=== PATIENT | female | born 1965 | race American Indian/Alaskan Native ===

== ENCOUNTER 2017-07-23 15:45 | Emergency (ER) | payer BC ==
[2017-07-23 15:46] VITALS: BMI 37.5
[2017-07-23 16:05] VITALS: TEMP 99.4
--- NOTE | 2017-07-23 16:45 | ED PDOC ---
Arrival/HPI - General Chief Complaint: Back Pain Time Seen by Provider: 07/23/17 16:38 - History of Present Illness Narrative History of Present Illness (Text): 07/23/17 16:41 Patient presents with lower thoracic R. sided back pain. Pt denies any trauma or injury. Pt states pain feels like a muscle spasm, worst with movement and palpation. No ripping/tearing sensation, pain is not diffuse and not traveling or changing location. Relieved with positioning. Pt states pain is not worst with inspiration, and is non-pleurtic. Pt states she had similar back pain in the past. No lower extremity pain/weakness/paresthesias. Pt denies urinary incontinence or retention. No bowel incontinence, constipation, or diarrhea. No hx of IVDA, no f/c, no neck pain. No other complaints. Past Medical History - Provider Review Nursing Documentation Reviewed: Yes - Infectious Disease Hx of Infectious Diseases: None - Tetanus Immunization Tetanus Immunization: Unknown - Cardiac Hx Hypertension: Yes - Pulmonary Hx Respiratory Disorders: No - Neurological Hx Neurological Disorder: No - HEENT Hx HEENT Disorder: No - Renal Hx Renal Disorder: No - Endocrine/Metabolic Other/Comment: PRE DIABETIC A1C - Hematological/Oncological Hx AIDS: Yes - Integumentary Hx Dermatological Disorder: No - Musculoskeletal/Rheumatological Other/Comment: WRIST R PAIN - Gastrointestinal Hx Gastrointestinal Ulcer: Yes - Genitourinary/Gynecological Hx Genitourinary Disorders: No - Psychiatric Hx Psychophysiologic Disorder: No Hx Depression: No Hx Emotional Abuse: No Hx Physical Abuse: No Hx Substance Use: No - Surgical History Other/Comment: UTERINE - Anesthesia Hx Anesthesia: Yes - Suicidal Assessment Feels Threatened In Home Enviroment: No Family/Social History Family/Social History: Unknown Family HX Smoking Status: Never Smoked Hx Alcohol Use: No Hx Substance Use: No Hx Substance Use Treatment: No Allergies/Home Meds Allergies/Adverse Reactions: Allergies No Known Allergies Allergy (Verified 07/23/17 15:58) Physical Exam - Physical Exam Narrative Physical Exam (Text): 07/23/17 16:46 - Review of Systems Constitutional: Normal. absent: Fatigue, Weight Change, Fevers Eyes: Normal ENT: denies sore throat, denies tristhmus Respiratory: Normal. absent: SOB, Cough, Sputum Cardiovascular: absent: Chest Pain, Palpitations, Syncope Gastrointestinal: Normal. absent: Abdominal Pain, Diarrhea, Nausea, Vomiting Genitourinary: Normal. absent: Dysuria, Frequency, Hematuria Musculoskeletal: back pain. absent: Arthralgias, Neck Pain Skin: no rashes, no erythema Neurological: absent: Focal Weakness Endocrine: Normal Hemo/Lymphatic: Normal Psychiatric: No suicidal or homicidal ideations Physical exam Patient appears age appropriate in no distress, speaking full sentences without difficulty Increased hypertonicity appreciated in the lower thoracic region on the R, pain with palpation along the post/lateral lower ribs, pain quality reproduced with palpation. No pleuricy. No midline tenderness. FROM of pt's cervical, thoracic, lumbar, and sacral regions appreciated, active/passive without any difficulty. Lower extremities with full neurological and vascular intact. Steady gait. - Systems Exam Head: Present: Atraumatic, Normocephalic Pupils: Present: PERRL Extroacular Muscles: Present: EOMI Conjunctiva: Present: Normal Mouth: Present: Moist Mucous Membranes Neck: Present: Normal Range of Motion. No: MIDLINE TENDERNESS, Paraspinal Tenderness Respiratory/Chest: Present: Clear to Auscultation, Good Air Exchange. No: Respiratory Distress, Accessory Muscle Use, Tachypneic Cardiovascular: Present: Regular Rate and Rhythm, Normal S1, S2, Peripheal Pulses Present. No: Murmurs Abdomen: Present: Normal Bowel Sounds. No: Tenderness, Distention, Peritoneal Signs, Rebound, Guarding Back: No: Midline Tenderness Upper Extremity: Present: Normal Inspection. No: Cyanosis, Edema Lower Extremity: Present: Normal Inspection. No: Edema Neurological: Present: GCS=15, Speech Normal, cranial nerves II through XII fully intact with no cerebellar abnormality, neurosensory fully intact. No focal neurological deficits. Skin: Present: Warm, Dry, Normal Color. No: Rashes Lymphatic: Present: OX3, NI, NC Psychiatric: Present: Alert, Oriented x 3, Normal Insight, Normal Concentration Vital Signs Reviewed: Yes Vital Signs Temp Pulse Resp BP Pulse Ox 07/23/17 15:59 99.4 F 68 16 184/114 H 98 Temperature: Afebrile Blood Pressure: Hypertensive Pulse: Regular Respiratory Rate: Normal Appearance: Positive for: Well-Appearing Pain Distress: None Mental Status: Positive for: Alert and Oriented X 3 Medical Decision Making ED Course and Treatment: pt received toradol, reported symptomatic relief. Based on hx and physical, no suspicion for renal involvement, cord impingement, PE, dissection, or epidural/ spinal abscess stable for dc home. instructed not to drive/operate machinery/drink/do drugs with medication pt's BP elevated. pt is asymptomatic. states she has a hx of HTN and admits to med non-compliance. states she has a PMD with whom she will f/u for further w/u and management. Pt verbalized understands to return to the ER right away for new or worsening symptoms or for inability to f/u with PMD or specialist as instructed. Patient verbalized full agreement with and understanding of discharge instructions. States that she agrees with the plan and disposition. Verbalized and repeated discharge instructions and plan. I have given the patient opportunity to ask any additional questions. - Medication Orders Current Medication Orders: Ketorolac Tromethamine (Toradol) 30 mg IM STAT STA Stop: 07/23/17 16:40 Disposition/Present on Arrival - Present on Arrival Any Indicators Present on Arrival: No History of DVT/PE: No History of Uncontrolled Diabetes: No Urinary Catheter: No History of Decub. Ulcer: No History Surgical Site Infection Following: None - Disposition Have Diagnosis and Disposition been Completed?: Yes Diagnosis: Back pain Disposition: HOME/ ROUTINE Disposition Time: 16:53 Patient Plan: Discharge Condition: GOOD Discharge Instructions (ExitCare): Back Pain (ED) Additional Instructions: PLEASE RETURN TO THE EMERGENCY DEPARTMENT FOR NEW OR WORSENING SYMPTOMS. RETURN RIGHT AWAY IF YOU CANNOT FOLLOW UP WITH YOUR PRIMARY CARE DOCTOR, CLINIC, OR SPECIALIST IN 1-2 DAYS. Prescriptions: Acetaminophen [Tylenol Extra Strength] 1,000 mg PO Q12 PRN #16 tablet PRN Reason: Pain, Moderate (4-7) Lidocaine 5% [Lidoderm] 1 ea TD DAILY #3 patch Referrals: Jayson De MD [Staff Provider] - Follow up with primary
[2017-07-23 17:29] VITALS: BP 171/90; PULSE 71; RESP 18; O2SAT 99
== END 2017-07-23 17:29 | disposition home or self-care (01) ==
LOC: ED 15:45
DX: M54.9 Dorsalgia, unspecified (principal); I10 Essential (primary) hypertension
CPT/HCPCS: 96372; 99282; J1885

== ENCOUNTER 2017-08-09 14:46 | Observation (INO) | payer BC ==
[2017-08-09 14:55] VITALS: BMI 41.3
[2017-08-09 15:40] LABS: BASO % 0.5 % (0.0-3.0); EOS % 2.2 % (1.5-5.0); GRAN # 3.17 (1.4-6.5); GRAN % 40.3 % (50.0-68.0); HEMATOCRIT 39.4 % (36.0-48.0); LYMPH % 50.4 % (22.0-35.0); MEAN CELL VOLUME 85.8 fl (80.0-105.0); MEAN CORPUSCULAR HGB CONC 33.8 g/dl (31.0-37.0); MEAN PLATELET VOLUME 9.3 fl (7.0-11.0); MONO % 6.6 % (1.0-6.0); RED CELL DISTRIBUTION WIDTH 13.9 % (11.5-14.5); URINE BILIRUBIN NEGATIVE (NEGATIVE); URINE BLOOD NEGATIVE (NEGATIVE); URINE GLUCOSE (UA) NEGATIVE (NEGATIVE); URINE KETONE NEGATIVE (NEGATIVE); URINE LEUKOCYTE ESTERASE NEGATIVE Leu/uL (NEGATIVE); URINE PROTEIN NEGATIVE mg/dL (<30 mg/dL); URINE UROBILINOGEN 0.2 E.U./dL (<1 E.U./dL); WHITE BLOOD COUNT 7.9 10^3/ul (4.5-11.0)
[2017-08-09 15:41] LABS: BASO # 0.04 K/mm3 (0.0-2.0); EOS # 0.2 (0.0-0.7); MONO # 0.5 (0.1-0.6); URINE APPEARANCE CLEAR (CLEAR); URINE COLOR STRAW (YELLOW)
[2017-08-09 15:42] LABS: ALB/GLOB RATIO 1.1 (1.1-1.8); ALKALINE PHOSPHATASE 88 U/L (38-126); ALT/SGPT 34 U/L (7-56); AST/SGOT 36 U/L (14-36); BILIRUBIN,TOTAL 0.6 mg/dL (0.2-1.3); BLOOD UREA NITROGEN 14 mg/dL (7-21); CALCIUM 9.5 mg/dL (8.4-10.5); CARBON DIOXIDE 28 mmol/L (21-33); CHLORIDE 100 mmol/L (98-107); GFR AFRICAN-AMERICAN > 60; GLUCOSE,RANDOM 89 mg/dL (70-110); MAGNESIUM 1.9 mg/dL (1.7-2.2); POTASSIUM 3.4 mmol/L (3.6-5.0); SODIUM 141 mmol/L (132-148); TOTAL PROTEIN 8.3 g/dL (5.8-8.3)
[2017-08-09 15:50] VITALS: O2SAT 99
[2017-08-09 15:50] LABS: INR 1.09 (0.93-1.08); PARTIAL THROMBOPLASTIN TIME 26.5 Seconds (25.1-36.5)
[2017-08-09 15:54] LABS: TROPONIN I < 0.01 ng/mL
--- NOTE | 2017-08-09 16:06 | RAD ---
HISTORY: chest pain COMPARISON: No prior. TECHNIQUE: Chest PA and lateral FINDINGS: LUNGS: No active pulmonary disease. PLEURA: No significant pleural effusion identified. No pneumothorax apparent. CARDIOVASCULAR: Normal. OSSEOUS STRUCTURES: No significant abnormalities. VISUALIZED UPPER ABDOMEN: Normal. OTHER FINDINGS: None. IMPRESSION: No active disease.
--- NOTE | 2017-08-09 16:44 | ED PDOC ---
Arrival/HPI - General Chief Complaint: Chest Pain Time Seen by Provider: 08/09/17 15:00 Historian: Patient - History of Present Illness Narrative History of Present Illness (Text): 08/09/17 16:44 51yo female with PMhx of hypertension present with complaint of hypertension, chest pain and SOB. Notes that nonexertional dyspnea started yesterday. chesty pain started today and her BP was 167/115 at work today. 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 She denies headache, visual change, nausea/vomiting, orthopena, LE edema, calf pain, abdominal pain, any other complaint. Past Medical History - Provider Review Nursing Documentation Reviewed: Yes - Infectious Disease Hx of Infectious Diseases: None - Tetanus Immunization Tetanus Immunization: Unknown - Cardiac Hx Hypertension: Yes - Pulmonary Hx Respiratory Disorders: No - Neurological Hx Neurological Disorder: No - HEENT Hx HEENT Disorder: No - Renal Hx Renal Disorder: No - Endocrine/Metabolic Other/Comment: PRE DIABETIC A1C - Hematological/Oncological Hx AIDS: Yes - Integumentary Hx Dermatological Disorder: No - Musculoskeletal/Rheumatological Other/Comment: WRIST R PAIN - Gastrointestinal Hx Gastrointestinal Ulcer: Yes - Genitourinary/Gynecological Hx Genitourinary Disorders: No - Psychiatric Hx Psychophysiologic Disorder: No Hx Depression: No Hx Emotional Abuse: No Hx Physical Abuse: No Hx Substance Use: No - Surgical History Other/Comment: UTERINE - Anesthesia Hx Anesthesia: Yes - Suicidal Assessment Feels Threatened In Home Enviroment: No Family/Social History - Physician Review Nursing Documentation Reviewed: Yes Family/Social History: Unknown Family HX Smoking Status: Never Smoked Hx Alcohol Use: No Hx Substance Use: No Hx Substance Use Treatment: No Allergies/Home Meds Allergies/Adverse Reactions: Allergies No Known Allergies Allergy (Verified 08/09/17 14:55) Home Medications: Home Meds Medication Instructions Recorded Confirmed Lisinopril/Hydrochlorothiazide 1 each PO DAILY 08/09/17 08/09/17 [Lisinopril-Hctz 10-12.5 mg Tab] Review of Systems - Physician Review All systems were reviewed & negative as marked: Yes - Review of Systems Constitutional: Normal Eyes: Normal ENT: Normal Respiratory: SOB Cardiovascular: Chest Pain Gastrointestinal: Normal Genitourinary Female: Normal Musculoskeletal: Normal Skin: Normal Neurological: Normal Endocrine: Normal Hemo/Lymphatic: Normal Psychiatric: Normal Physical Exam Vital Signs Reviewed: Yes Vital Signs Temp Pulse Pulse Resp BP BP Pulse Ox 08/09/17 15:49 79 18 145/89 99 08/09/17 15:44 75 141/94 H 08/09/17 14:56 98.3 F 83 17 100 08/09/17 14:54 98.3 F 82 17 149/92 H 99 Temperature: Afebrile Blood Pressure: Normal Pulse: Regular Respiratory Rate: Normal Appearance: Positive for: Well-Appearing, Non-Toxic, Comfortable Pain Distress: None Mental Status: Positive for: Alert and Oriented X 3 - Systems Exam Head: Present: Atraumatic, Normocephalic Pupils: Present: PERRL Extroacular Muscles: Present: EOMI Conjunctiva: Present: Normal Mouth: Present: Moist Mucous Membranes Neck: Present: Normal Range of Motion Respiratory/Chest: Present: Clear to Auscultation, Good Air Exchange. No: Respiratory Distress, Accessory Muscle Use, Wheezes, Decreased Breath Sounds, Rales, Retracting, Rhonchi, Tachypneic Cardiovascular: Present: Regular Rate and Rhythm, Normal S1, S2. No: Murmurs Abdomen: Present: Normal Bowel Sounds. No: Tenderness, Distention, Peritoneal Signs Back: Present: Normal Inspection Upper Extremity: Present: Normal Inspection. No: Cyanosis, Edema Lower Extremity: Present: Normal Inspection. No: Edema Neurological: Present: GCS=15, CN II-XII Intact, Speech Normal Skin: Present: Warm, Dry, Normal Color. No: Rashes Psychiatric: Present: Alert, Oriented x 3, Normal Insight, Normal Concentration Medical Decision Making ED Course and Treatment: 08/09/17 16:51 Pt in ED for stated history. Her BP improved in ED. she was hemodynamically stable. ASA was given Lab was unremarkable. First CE was negative. EKG NSR @ 75bpm with no ST changes Secondary to patient's medical history and age, she will need to be observe for further evaluation Case was DW Dr. Saunders and pt was admitted to his service. He requested Dr. Wan consult. He saw pt in ED. Pt agree with the plan. - Lab Interpretations Lab Results: 08/09/17 15:21 08/09/17 15:21 Lab Results 08/09/17 15:21: Sodium 141, Potassium 3.4 L, Chloride 100, Carbon Dioxide 28, Anion Gap 16, BUN 14, Creatinine 0.9, Est GFR ( Amer) > 60, Est GFR (Non- Af Amer) > 60, Random Glucose 89, Calcium 9.5, Magnesium 1.9, Total Bilirubin 0.6, AST 36, ALT 34, Alkaline Phosphatase 88, Lactate Dehydrogenase 617, Total Creatine Kinase 176, Troponin I < 0.01, Total Protein 8.3, Albumin 4.4, Globulin 3.9, Albumin/Globulin Ratio 1.1 08/09/17 15:21: Urine Color Straw, Urine Appearance Clear, Urine pH 6.0, Ur Specific [place] <= 1.005, Urine Protein Negative, Urine Glucose (UA) Negative, Urine Ketones Negative, Urine Blood Negative, Urine Nitrate Negative, Urine Bilirubin Negative, Urine Urobilinogen 0.2, Ur Leukocyte Esterase Negative 08/09/17 15:21: PT 11.9, INR 1.09 H, APTT 26.5 08/09/17 15:21: WBC 7.9, RBC 4.59, Hgb 13.3, Hct 39.4, MCV 85.8, MCH 29.0, MCHC 33.8, RDW 13.9, Plt Count 311, MPV 9.3, Gran % 40.3 L, Lymph % (Auto) 50.4 H, [place] % (Auto) 6.6 H, Eos % (Auto) 2.2, Baso % (Auto) 0.5, Gran # 3.17, Lymph # 4.0 H, [place] # 0.5, Eos # 0.2, Baso # 0.04 - RAD Interpretation Radiology Orders: 08/09/17 15:17 CHEST TWO VIEWS (PA/LAT) [RAD] Stat - Medication Orders Current Medication Orders: Discontinued Medications Aspirin (Aspirin) 325 mg PO STAT STA Stop: 08/09/17 15:18 Last Admin: 08/09/17 15:27 Dose: 325 mg Disposition/Present on Arrival - Present on Arrival Any Indicators Present on Arrival: No History of DVT/PE: No History of Uncontrolled Diabetes: No Urinary Catheter: No History of Decub. Ulcer: No History Surgical Site Infection Following: None - Disposition Have Diagnosis and Disposition been Completed?: Yes Diagnosis: Chest pain, Hypertension Disposition: HOSPITALIZED Disposition Time: 16:40 Condition: FAIR Discharge Instructions (ExitCare): Chest Pain (ED) Referrals: Barrington Saunders, DO [Primary Care Provider] - Follow up with primary
[2017-08-09] MEDS ORDERED: Potassium Chloride 20 mEq/15 ml LIQ UD PO STA (18:05)
[2017-08-09] MEDS ORDERED: Pneumococcal 23-Valent Vaccine IM ONE (18:47)
[2017-08-10 06:20] VITALS: RESP 19
[2017-08-10 07:10] LABS: HEMATOCRIT 38.7 % (36.0-48.0); MEAN CELL VOLUME 85.8 fl (80.0-105.0); MEAN CORPUSCULAR HEMOGLOBIN 27.9 pg (25.0-35.0); MEAN CORPUSCULAR HGB CONC 32.6 g/dl (31.0-37.0); MEAN PLATELET VOLUME 9.1 fl (7.0-11.0); RED CELL DISTRIBUTION WIDTH 14.1 % (11.5-14.5); WHITE BLOOD COUNT 4.8 10^3/ul (4.5-11.0)
[2017-08-10 07:12] LABS: ALB/GLOB RATIO 1.1 (1.1-1.8); ALKALINE PHOSPHATASE 70 U/L (38-126); ALT/SGPT 42 U/L (7-56); AST/SGOT 29 U/L (14-36); BLOOD UREA NITROGEN 13 mg/dL (7-21); CALCIUM 9.1 mg/dL (8.4-10.5); CARBON DIOXIDE 29 mmol/L (21-33); CHLORIDE 102 mmol/L (95-110); GFR AFRICAN-AMERICAN > 60; GLUCOSE,RANDOM 97 mg/dL (70-110); POTASSIUM 3.3 mmol/L (3.6-5.0); SODIUM 139 mmol/L (132-148); TOTAL PROTEIN 7.2 g/dL (5.8-8.3)
[2017-08-10] MEDS ORDERED: Potassium Chloride 20 mEq ER Tab PO ONE (08:06)
--- NOTE | 2017-08-10 08:31 | HP ---
HISTORY OF PRESENT ILLNESS: had called my office today, telling me that she had a hypertensive episode, it was 180/110 and I told her to double up in her blood pressure pills and she went to the emergency room, she got chest pain and also she was little bit short of breath yesterday, which I did not know about. She is a 51-year-old female with chest pain today, shortness of breath yesterday, elevated blood pressure as high as 167/115 at work, not feeling well. She took her lisinopril twice and she is having the headache, chest pain, and shortness of breath. PAST MEDICAL HISTORY: Hypertension, prediabetic on hemoglobin A1c, has had right wrist pain before. She had a surgery in her uterus before. FAMILY HISTORY: Hypertension in the family. SOCIAL HISTORY: Never smoker and alcohol. No drugs. ALLERGIES: NO KNOWN DRUG ALLERGIES. MEDICATIONS: She takes lisinopril and hydrochlorothiazide 10/12.5 mg, but increased it to 20/25 mg for today, which brought the blood pressure down a bit in [id number], but still with a headache, shortness of breath, and chest pain. REVIEW OF SYSTEMS: She had a headache, shortness of breath, and chest pain. No vision changes. No hearing changes. No sore throat. No abdominal pain. No nausea, vomiting, constipation, or diarrhea. Skin is intact as far as she is concerned. No rashes or ulcers. No dizziness. No anxiety or depression. PHYSICAL EXAMINATION: VITAL SIGNS: She has a 98.3 temperature, 83 pulse, 18 respiratory rate, 145/89 on the ER now and 100% O2 saturation. HEENT: Head is atraumatic and normocephalic. Extraocular muscles are intact. Pupils are equal, reactive to light and accommodation. Throat is moist. GENERAL: She is well appearing, nontoxic, comfortable at this time, just weak and tired. NECK: Supple. HEART: Regular rate. Normal S1 and S2. LUNGS: Decreased breath sounds but clear to auscultation bilaterally. No wheezes or rhonchi. No rales. ABDOMEN: Soft, nontender. Positive bowel sounds, little obese. No guarding. No rebound. No CVA tenderness. EXTREMITIES: No edema. NEUROLOGIC: GCS is 15. Cranial nerves II through XII grossly intact. Speech is normal. Alert and oriented x3. SKIN: Warm and dry. No apparent rashes. LYMPHS: Thyroid is midline. No palpable lymphadenopathy appreciated. LABORATORY DATA: She had blood tests. She has a urine which is clean. She has 141 sodium, potassium 3.4,will replace potassium. BUN 14, creatinine 0.9, GFR is greater than 60. Sugar is 89, calcium is 9.5, magnesium 1.9, total bilirubin is 0.6, AST is 36, ALT is 34, alkaline phosphatase is 88, lactate dehydrogenase of 617, total creatine kinase 176. Troponin I is less than 0.01. BNP is less than. Total protein is 8.3, albumin is 4.4, globulin 3.9. INR is 1.09. She has a 7.9 white count, 13.3 hemoglobin, 39.4 hematocrit and 311 platelets. Chest x-ray, no acute disease. ASSESSMENT AND PLAN: She will have a consult with Pulmonary and Cardiology. Troponin is q. 8 hours x2, mostly on oxygen. We will check her labs tomorrow. Continue with her antihypertensive medications. She should be on a heart healthy diet, 2 g sodium. Continue with aggressive treatment and care. We will see her on observation for chest pain, shortness of breath and elevated blood pressure. Barrington Saunders DO MTDD
--- NOTE | 2017-08-10 09:53 | CARD ---
APPROVED REPORT EKG Measurement Heart [id number] <Conclusion> Normal sinus rhythm LVH by voltage
[2017-08-10 11:35] VITALS: BP 142/72; PULSE 110; TEMP 98.3
--- NOTE | 2017-08-11 10:55 | DS ---
She was doing well this morning. She slept well last night. No shortness of breath or chest pain this morning. She was seen by gardening instructor who ordered a d-dimer and waiting for the graphic technician to come in. She is currently on hydrochlorothiazide and Zestril. PHYSICAL EXAMINATION: VITAL SIGNS: She has a 98.6 temperature, 59 pulse, 110/75 blood pressure, 19 respiratory rate, and 99% O2 saturation via nasal cannula. GENERAL: Her blood pressures have been good while she has been here. She has an appetite and she is walking to the bathroom. HEENT: Head is atraumatic and normocephalic. HEART: Regular rate. LUNGS: Clear to auscultation. ABDOMEN: Soft. EXTREMITIES: No edema. LABORATORY DATA: She has a white count of 4.8, hemoglobin 12.6, hematocrit 38.7, and platelets are 270. Her d-dimer is 242 normal. Sodium 139, potassium 3.3, I gave her potassium replacement. BUN 13, creatinine 0.9, GFR greater than 60 and sugar 97. Calcium is 9.1, total bilirubin AST is 29, ALT is 42, alkaline phosphatase is 70. The troponins are less than 0.01. Total protein is 7.2. Urine is clear. Pulmonary appreciated. D-dimer is negative. Waiting for Cardiology to see her. Making plan for possible outpatient stress test. We will continue with aggressive treatment and care. She is to follow up with me in the office next week. with chest pain and shortness of breath. Barrington Saunders DO MTDJuice
--- NOTE | 2017-08-11 11:21 | CON ---
REFERRING PHYSICIAN: Barrington Saunders DO REASON FOR CONSULTATION: Shortness of breath. HISTORY OF PRESENT ILLNESS: The patient is a 51-year-old female, with past medical history significant for hypertension, obesity, who presents to [facility] ([facility]3] with a 1-day history of shortness of breath at rest, dyspnea on exertion, and chest pain. There is no history of cough or sputum production. The chest pain is mid-sternal in location. There is no history of hemoptysis. There is no history of chest pain, worsening-with deep respirations. There is no history of temperatures, chills or infectious exposure. There is no history of night sweats, weight loss or appetite change prior to the above events. The patient does state that her right calf "cramps up" at times. It is not hurting her at the time of my examination. No history of syncope or diaphoresis. The patient does admit to a recent long car ride-from [place]. No history of trauma. REVIEW OF SYSTEMS: No history of nausea, vomiting or diarrhea. No acute urinary symptoms. No new neurologic complaints. Rest of the review of systems is negative. ALLERGIES: NO KNOWN ALLERGIES. SOCIAL HISTORY: Negative for tobacco and negative for alcohol. FAMILY HISTORY: No inheritable diseases. HOME MEDICATIONS: Include lisinopril and hydrochlorothiazide. PHYSICAL EXAMINATION GENERAL: The patient appears comfortable this morning. She is not short of breath at rest. She also states that her chest pain is significantly less. VITAL SIGNS: Temperature is 98.6, pulse 59, respirations 19, blood pressure 110/75. Oxygen saturation on nasal cannula is 99%. HEENT: Normocephalic, atraumatic. NECK: No JVD. CARDIOVASCULAR: Positive S1, S2. No S3 gallop. LUNGS: Clear bilaterally. EXTREMITIES: Mild edema is noted in both lower extremities. No cyanosis or clubbing. Both calves are nontender to palpation. GASTROINTESTINAL: Abdomen is soft, nontender and nondistended. Bowel sounds are positive. SKIN: No acute rash. NEUROLOGIC: Limited at the present time. PERTINENT LABORATORY DATA: Chest x-ray was done yesterday and reviewed. There is no active disease noted. Complete metabolic profile: Potassium 3.4. Rest of the metabolic profile is within normal limits. CBC: White count 7.9, hemoglobin 13.3, hematocrit 39.4, platelets of 311. IMPRESSION: 1. Chest pain-resolving. 2. Shortness of breath-resolved. 3. Hypertension. 4. Obesity. PLAN: The patient presents to [facility] ([facility]3] with a 1-day history of shortness of breath at rest, dyspnea on exertion, and chest pain. As above, the patient is very comfortable this morning and denies shortness of breath. She also states that her chest pain is significantly better/decreased. On physical exam, her lungs are clear. Oxygen saturation on nasal cannula is 99%. She does have the history of a long car ride within the last 2 weeks. She also states to some right calf cramping "on and off," not now. I will start the pulmonary workup by ordering a stat D-dimer. I did discuss the order with the cytogenetics laboratory manager in person. Cardiology evaluation with Dr. Wan has also been ordered. Additional pulmonary intervention will be based on the above results as well as the clinical status of the patient. Again, the patient is feeling much better this morning and is clinically improved. I will discuss the above with Dr. Saunders. Thank you very much for this pulmonary consultation. Cristo Anderson MD
--- NOTE | 2017-08-11 12:16 | CON ---
DATE: 08/10/2017 HISTORY OF PRESENT ILLNESS: The patient is a 51-year-old woman with a history of hypertension who presents with chest pain. She has a strong family history for CAD in the family. She denies diabetes mellitus. SOCIAL HISTORY: She does not smoke. REVIEW OF SYSTEMS: A 14-point review of systems reviewed in detail. No other cardiac symptomatology is noted. Her chest pain is now resolved. The patient is ambulating on the floor without symptoms. PHYSICAL EXAMINATION: VITAL SIGNS: Blood pressure is 128/80, heart rate in the 70s. NECK: Negative JVD. LUNGS: Without rales. HEART: S1 and S2. EXTREMITIES: Without edema. EKG is unremarkable. LABORATORIES: Reveals troponins are negative x3. Hemoglobin is 12.6. IMPRESSION: 1. Chest pain which is now resolved. 2. No evidence for acute coronary syndrome. 3. Hypertension. 4. Strong family history for coronary artery disease. 5. Obesity. PLAN: Given these findings, from a cardiac perspective, the patient can be discharged today. I have discussed with the patient about the need for further investigation. We will arrange for an outpatient stress test later on this week. Syd Wan MD
== END 2017-08-10 15:31 | disposition home or self-care (01) ==
LOC: ED 14:46 → ERH 16:43 → 2RSO 18:17
PROVIDERS: ADMIT Family Medicine; ATTEND Family Medicine
DX: R07.9 Chest pain, unspecified (principal); Z21 Asymptomatic human immunodeficiency virus [HIV] infection status; E66.9 Obesity, unspecified; I10 Essential (primary) hypertension; Z82.49 Family history of ischemic heart disease and other diseases of the circulatory system; Z87.11 Personal history of peptic ulcer disease; Z68.39 Body mass index [BMI] 39.0-39.9, adult
CPT/HCPCS: 36415; 71020; 80053; 81003; 82550; 83615; 83735; 83880; 84484; 85025; 85027; 85378; 85610; 85730; 93005; 99285; G0378

== ENCOUNTER 2017-08-19 18:46 | Emergency (ER) | payer BC ==
[2017-08-19 19:10] VITALS: RESP 18; TEMP 98.7; BMI 42.0
--- NOTE | 2017-08-19 19:23 | ED PDOC ---
Arrival/HPI - General Chief Complaint: Weakness/Neurological Deficit Time Seen by Provider: 08/19/17 18:53 Historian: Patient - History of Present Illness Narrative History of Present Illness (Text): 08/19/17 19:15 A 51 year old female, whose past medical history includes hypertension and pre- diabetes, presents to the emergency department complaining of intermittent left- sided numbness for more than a week. Patient reports experiencing numbness on left hand and left thigh and symptom began during overnight stay here on 2016. Symptoms have been on/off since then. Patient states she has never had this before. Denies any difficulty ambulating, weakness, fever, nausea, vomiting , chest pain, shortness of breath, dizziness, headache, visual changes, or any other complaints. Also, patient mentions earlier today, she began experiencing neck pain around 14:30, and later started experiencing mentioned symptoms afterwards. PMD: Dr. Saunders Time/Duration: Other (since 08/09/2017) Symptom Onset: Sudden Symptom Course: Intermittent Past Medical History - Provider Review Nursing Documentation Reviewed: Yes - Infectious Disease Hx of Infectious Diseases: None - Tetanus Immunization Tetanus Immunization: Unknown - Cardiac Hx Hypertension: Yes - Pulmonary Hx Respiratory Disorders: No - Neurological Hx Neurological Disorder: No - HEENT Hx HEENT Disorder: Yes (eyeglasses) - Renal Hx Renal Disorder: No - Endocrine/Metabolic Other/Comment: PRE DIABETIC A1C - Hematological/Oncological Hx Blood Disorders: No - Integumentary Hx Dermatological Disorder: No - Musculoskeletal/Rheumatological Hx Back Pain: Yes Hx Falls: No Other/Comment: WRIST R PAIN - Gastrointestinal Hx Gastrointestinal Ulcer: Yes - Genitourinary/Gynecological Hx Genitourinary Disorders: Yes Other/Comment: UTERINE SURGERY - Psychiatric Hx Psychophysiologic Disorder: No Hx Depression: No Hx Emotional Abuse: No Hx Physical Abuse: No Hx Substance Use: No - Surgical History Other/Comment: UTERINE, cryoablation - Anesthesia Hx Anesthesia: Yes - Suicidal Assessment Feels Threatened In Home Enviroment: No Family/Social History - Physician Review Nursing Documentation Reviewed: Yes Family/Social History: No Known Family HX Smoking Status: Never Smoked Hx Alcohol Use: No Hx Substance Use: No Hx Substance Use Treatment: No Allergies/Home Meds Allergies/Adverse Reactions: Allergies No Known Allergies Allergy (Verified 08/19/17 18:56) Home Medications: Home Meds Medication Instructions Recorded Confirmed Lisinopril/Hydrochlorothiazide 1 each PO DAILY 08/09/17 08/09/17 [Lisinopril-Hctz 10-12.5 mg Tab] Review of Systems - Physician Review All systems were reviewed & negative as marked: Yes - Review of Systems Constitutional: absent: Fevers, Other (no difficulty ambulating) Eyes: absent: Vision Changes Respiratory: absent: SOB Cardiovascular: absent: Chest Pain Gastrointestinal: absent: Nausea, Vomiting Musculoskeletal: Neck Pain (only earlier today) Neurological: Other (numbness/tingling on left side (left hand and left thigh)) . absent: Headache, Dizziness, Focal Weakness Physical Exam Vital Signs Reviewed: Yes Vital Signs Temp Pulse Resp BP Pulse Ox 08/19/17 19:04 98.7 F 74 18 134/91 H 98 Temperature: Afebrile Blood Pressure: Normal Pulse: Regular Respiratory Rate: Normal Appearance: Positive for: Well-Appearing Pain Distress: None Mental Status: Positive for: Alert and Oriented X 3 - Systems Exam Head: Present: Atraumatic, Normocephalic Pupils: Present: PERRL Extroacular Muscles: Present: EOMI Conjunctiva: Present: Normal Mouth: Present: Moist Mucous Membranes Pharnyx: Present: Normal. No: ERYTHEMA, EXUDATE Neck: Present: Normal Range of Motion. No: Meningeal Signs, MIDLINE TENDERNESS , Bruit Respiratory/Chest: Present: Clear to Auscultation, Good Air Exchange. No: Respiratory Distress, Accessory Muscle Use Cardiovascular: Present: Regular Rate and Rhythm, Normal S1, S2. No: Murmurs Abdomen: Present: Normal Bowel Sounds. No: Tenderness, Distention, Peritoneal Signs Back: Present: Normal Inspection Upper Extremity: Present: Normal Inspection. No: Cyanosis, Edema Lower Extremity: Present: Normal Inspection. No: Edema Neurological: Present: GCS=15, CN II-XII Intact, Speech Normal, Motor Func Grossly Intact, Normal Sensory Function, Normal Cerebellar Funct, Gait Normal Skin: Present: Warm, Dry, Normal Color. No: Rashes Psychiatric: Present: Alert, Oriented x 3, Normal Insight, Normal Concentration Medical Decision Making ED Course and Treatment: 08/19/17 19:20 Impression: 51 year old male with left-side numbness mostly in left hand and left thigh with symptoms for nearly 10 days. Normal neuro exam in the ED. Plan: -- Brain CT -- Cervical CT -- Labs -- Reassess and disposition Prior Visits: Notes and results from previous visits were reviewed. Patient was last seen in the emergency department on 08/09/2017 for hypertension, chest pain, and shortness of breath. Patient was admitted. Progress Notes: 08/19/17 22:40 CT Brain: FINDINGS: Brain: Unremarkable. No significant white matter disease. No edema. No intracranial mass, mass effect, or midline shift. Ventricles: Unremarkable. No ventriculomegaly. Bones/joints: Unremarkable. No acute fracture. Soft tissues: Unremarkable. Sinuses: Unremarkable as visualized. No acute sinusitis. Mastoid air cells: Unremarkable as visualized. No mastoid effusion. IMPRESSION: No acute intracranial abnormality CT C-spine: FINDINGS: Vertebrae: No acute fracture. Alignment: Straightening and slight reversal of the normal curvature of the cervical spine, possibly muscular in origin. Discs/spinal canal/neural foramina: No acute findings. Soft tissues: Symmetric Lung apices: The visualized lung apices are clear. IMPRESSION: No acute fracture Patient with noted history with intermittent numbnesss x 10 days; normal neuro exam and labs here in the ED; CT with no acute findings - discussed with Dr. Saunders, who agrees with discharge and patient may follow up with neurology outpatient. Ok for d/c. - Lab Interpretations Lab Results: 08/19/17 19:30 08/19/17 19:30 Lab Results 08/19/17 19:30: Sodium 139, Potassium 3.7, Chloride 100, Carbon Dioxide 27, Anion Gap 16, BUN 17, Creatinine 0.9, Est GFR ( Amer) > 60, Est GFR (Non- Af Amer) > 60, Random Glucose 92, Calcium 9.9, Magnesium 2.1, Total Bilirubin 0.7, AST 31, ALT 26, Alkaline Phosphatase 83, Total Protein 8.3, Albumin 4.3, Globulin 4.0, Albumin/Globulin Ratio 1.1 08/19/17 19:30: WBC 8.6 D, RBC 4.62, Hgb 13.2, Hct 39.7, MCV 85.9, MCH 28.6, MCHC 33.2, RDW 14.1, Plt Count 273, MPV 9.4, Gran % 35.8 L, Lymph % (Auto) 53.3 H, Hockley % (Auto) 8.1 H, Eos % (Auto) 2.2, Baso % (Auto) 0.6, Gran # 3.07, Lymph # 4.6 H, Hockley # 0.7 H, Eos # 0.2, Baso # 0.05 I have reviewed the lab results: Yes - RAD Interpretation Radiology Orders: 08/19/17 19:17 Brain [HEAD W/O CONTRAST] [CT] Stat 08/19/17 19:18 CERVICAL SPINE W/O CONTRAST [CT] Stat - Scribe Statement The provider has reviewed the documentation as recorded by the Erlindaibcharles Britton Provider Scribe Attestation: All medical record entries made by the Scribe were at my direction and personally dictated by me. I have reviewed the chart and agree that the record accurately reflects my personal performance of the history, physical exam, medical decision making, and the department course for this patient. I have also personally directed, reviewed, and agree with the discharge instructions and disposition. Disposition/Present on Arrival - Present on Arrival Any Indicators Present on Arrival: No History of DVT/PE: No History of Uncontrolled Diabetes: No Urinary Catheter: No History of Decub. Ulcer: No History Surgical Site Infection Following: None - Disposition Have Diagnosis and Disposition been Completed?: Yes Diagnosis: Numbness Disposition: HOME/ ROUTINE Disposition Time: 22:30 Patient Plan: Discharge Condition: GOOD Discharge Instructions (ExitCare): Paresthesia (ED) Additional Instructions: Make sure you follow up with neurology and Dr. Saunders. Call tomorrow for an appointment. Return to the emergency department if any new concerning symptoms. Referrals: Barrington Saunders DO [Primary Care Provider] - Follow up with primary Ab Liu MD [Staff Provider] - Follow up with primary Forms: [employer] (Luxembourgish)
[2017-08-19 19:54] LABS: BASO # 0.05 K/mm3 (0.0-2.0); BASO % 0.6 % (0.0-3.0); EOS # 0.2 (0.0-0.7); EOS % 2.2 % (1.5-5.0); GRAN # 3.07 (1.4-6.5); GRAN % 35.8 % (50.0-68.0); HEMATOCRIT 39.7 % (36.0-48.0); LYMPH # 4.6 (1.2-3.4); LYMPH % 53.3 % (22.0-35.0); MEAN CELL VOLUME 85.9 fl (80.0-105.0); MEAN CORPUSCULAR HEMOGLOBIN 28.6 pg (25.0-35.0); MEAN CORPUSCULAR HGB CONC 33.2 g/dl (31.0-37.0); MEAN PLATELET VOLUME 9.4 fl (7.0-11.0); MONO # 0.7 (0.1-0.6); MONO % 8.1 % (1.0-6.0); RED CELL DISTRIBUTION WIDTH 14.1 % (11.5-14.5); WHITE BLOOD COUNT 8.6 10^3/ul (4.5-11.0)
[2017-08-19 20:06] LABS: ALB/GLOB RATIO 1.1 (1.1-1.8); ALKALINE PHOSPHATASE 83 U/L (38-126); ALT/SGPT 26 U/L (7-56); AST/SGOT 31 U/L (14-36); BILIRUBIN,TOTAL 0.7 mg/dL (0.2-1.3); BLOOD UREA NITROGEN 17 mg/dL (7-21); CALCIUM 9.9 mg/dL (8.4-10.5); CARBON DIOXIDE 27 mmol/L (21-33); CHLORIDE 100 mmol/L (98-107); GFR AFRICAN-AMERICAN > 60; GLUCOSE,RANDOM 92 mg/dL (70-110); MAGNESIUM 2.1 mg/dL (1.7-2.2); POTASSIUM 3.7 mmol/L (3.6-5.0); SODIUM 139 mmol/L (132-148); TOTAL PROTEIN 8.3 g/dL (5.8-8.3)
--- NOTE | 2017-08-19 22:04 | CT ---
EXAM: CT Head Without Intravenous Contrast CLINICAL HISTORY: 51 years old, female; Signs and symptoms; Numbness / parasthesia; Left; Additional info: L side numbness TECHNIQUE: Axial computed tomography images of the head/brain without intravenous contrast. All CT scans at this facility use one or more dose reduction techniques, viz.: automated exposure control; ma/kV adjustment per patient size (including targeted exams where dose is matched to indication; i.e. head); or iterative reconstruction technique. COMPARISON: No relevant prior studies available. FINDINGS: Brain: No acute intracranial hemorrhage. No significant white matter disease. No edema. Ventricles: No significant ventriculomegaly. Bones: No acute displaced fracture. Sinuses: Unremarkable as visualized. No acute sinusitis. Mastoid air cells: Unremarkable as visualized. No mastoid effusion. IMPRESSION: No acute intracranial hemorrhage, or suspicious mass effect. Acute infarction may be CT occult within first 24 hours. If a focal deficit persists, consider followup CT or MRI for further evaluation.
--- NOTE | 2017-08-19 22:05 | CT ---
EXAM: CT Cervical Spine Without Intravenous Contrast CLINICAL HISTORY: 51 years old, female; Signs and symptoms; Numbness; Additional info: L side numbness TECHNIQUE: Axial computed tomography images of the cervical spine without intravenous contrast. All CT scans at this facility use one or more dose reduction techniques, viz.: automated exposure control; ma/kV adjustment per patient size (including targeted exams where dose is matched to indication; i.e. head); or iterative reconstruction technique. Coronal and sagittal reformatted images were created and reviewed. COMPARISON: No relevant prior studies available. FINDINGS: Vertebrae: No acute fracture. Alignment: Straightening and slight reversal of the normal curvature of the cervical spine, possibly muscular in origin. Discs/spinal canal/neural foramina: No acute findings. Soft tissues: Symmetric Lung apices: The visualized lung apices are clear. IMPRESSION: No acute fracture.
[2017-08-19 22:50] VITALS: BP 124/71; PULSE 68; O2SAT 99
== END 2017-08-19 22:57 | disposition home or self-care (01) ==
LOC: ED 18:46
DX: R20.0 Anesthesia of skin (principal); I10 Essential (primary) hypertension; R73.03 Prediabetes

== ENCOUNTER 2017-11-17 08:33 | Day surgery (SDC) | payer BC ==
[2017-11-10 09:55] VITALS: BMI 39.1
[2017-11-17 09:05] VITALS: O2SAT 100
[2017-11-17] MEDS ORDERED: Propofol 10 mg/ml Inj (20 ML) ONE ×2 (09:10→09:19)
[2017-11-17] MEDS ORDERED: Sodium Chloride 0.9% 1,000 ML IV SCH (09:45)
[2017-11-17 10:55] VITALS: BP 116/57; PULSE 58; RESP 18; TEMP 97.6
== END 2017-11-17 11:15 | disposition home or self-care (01) ==
LOC: ENDO 08:33
PROVIDERS: ATTEND Internal Medicine Gastroenterology
DX: Z12.11 Encounter for screening for malignant neoplasm of colon (principal); K64.8 Other hemorrhoids; K57.30 Diverticulosis of large intestine without perforation or abscess without bleeding
CPT/HCPCS: 45378; 84703; J2704; J7040 ×2

== ENCOUNTER 2018-01-25 17:26 | Emergency (ER) | payer BC ==
[2018-01-25 17:26] VITALS: BMI 39.1
[2018-01-25 17:50] VITALS: BP 173/100; PULSE 77; RESP 16; TEMP 99; O2SAT 100
--- NOTE | 2018-01-25 19:41 | ED PDOC ---
Arrival/HPI - General Chief Complaint: Lower Extremity Problem/Injury Time Seen by Provider: 01/25/18 18:48 Historian: Patient - History of Present Illness Narrative History of Present Illness (Text): 01/25/18 19:37 Patient is a 52 year old female with no sig. PMH, presents to the ED s/p slip and fall at work this morning. Pt says she was walking and slipped on a slippery surface, twisted her right ankle, fell on her left knee and stubbed her left big toe. Pt was helped by coworkers, stood and walked around but as the day went on, felt more pain and swelling. Denies hitting her head, LOC, sob , cp, fever, n/v/d/ back pain or any other complaints at this time Time/Duration: 4-6 hours Symptom Onset: Sudden Symptom Course: Unchanged Quality: Aching, Pressure, Tightness Severity Level: 5 Activities at Onset: Rest, Light Context: Work Past Medical History - Provider Review Nursing Documentation Reviewed: Yes - Travel History Have you recently traveled outside [place] w/in the past 3 mons?: No - Past History Past History: No Previous - Infectious Disease Hx of Infectious Diseases: None - Tetanus Immunization Tetanus Immunization: Unknown - Cardiac Hx Cardiac Disorders: Yes Hx Hypertension: Yes - Pulmonary Hx Respiratory Disorders: No - Neurological Hx Neurological Disorder: No - HEENT Hx HEENT Disorder: Yes (eyeglasses) - Renal Hx Renal Disorder: No - Endocrine/Metabolic Hx Endocrine Disorders: No - Hematological/Oncological Hx Blood Disorders: No - Integumentary Hx Dermatological Disorder: No - Musculoskeletal/Rheumatological Hx Musculoskeletal Disorders: No - Gastrointestinal Hx Gastrointestinal Disorders: Yes Hx Gastrointestinal Ulcer: Yes - Genitourinary/Gynecological Hx Genitourinary Disorders: Yes Other/Comment: UTERINE SURGERY - Psychiatric Hx Psychophysiologic Disorder: No Hx Substance Use: No - Surgical History Other/Comment: UTERINE - Anesthesia Hx Anesthesia Reactions: No Hx Malignant Hyperthermia: No - Suicidal Assessment Feels Threatened In Home Enviroment: No Family/Social History - Physician Review Nursing Documentation Reviewed: Yes Family/Social History: Unknown Family HX Smoking Status: Never Smoked Hx Alcohol Use: No Hx Substance Use: No Hx Substance Use Treatment: No Allergies/Home Meds Allergies/Adverse Reactions: Allergies No Known Allergies Allergy (Verified 01/25/18 17:44) Home Medications: Home Meds Medication Instructions Recorded Confirmed Lisinopril/Hydrochlorothiazide 1 each PO DAILY 08/09/17 01/25/18 [Lisinopril-Hctz 10-12.5 mg Tab] Review of Systems - Review of Systems Constitutional: Normal Eyes: Normal ENT: Normal Respiratory: Normal Cardiovascular: Normal Gastrointestinal: Normal Genitourinary Female: Normal Musculoskeletal: Normal, Joint Swelling (right ankle, left knee and left big toe ) Skin: Normal Neurological: Normal Endocrine: Normal Hemo/Lymphatic: Normal Psychiatric: Normal Physical Exam Vital Signs Reviewed: Yes Vital Signs Temp Pulse Resp BP Pulse Ox 01/25/18 17:44 99.0 F 77 16 173/100 H 100 Temperature: Afebrile Blood Pressure: Hypertensive Pulse: Regular Respiratory Rate: Normal Appearance: Positive for: Well-Appearing, Non-Toxic, Comfortable Pain Distress: None Mental Status: Positive for: Alert and Oriented X 3 - Systems Exam Head: Present: Atraumatic, Normocephalic Pupils: Present: PERRL Extroacular Muscles: Present: EOMI Conjunctiva: Present: Normal Mouth: Present: Moist Mucous Membranes Neck: Present: Normal Range of Motion Respiratory/Chest: Present: Clear to Auscultation, Good Air Exchange. No: Respiratory Distress, Accessory Muscle Use Cardiovascular: Present: Regular Rate and Rhythm, Normal S1, S2. No: Murmurs Abdomen: No: Tenderness, Distention, Peritoneal Signs Back: Present: Normal Inspection Upper Extremity: Present: Normal Inspection. No: Cyanosis, Edema Lower Extremity: Present: Normal Inspection, NORMAL PULSES, Tenderness (Right ankle, left knee and left hallux). No: Edema, CALF TENDERNESS, Jeff's Sign Neurological: Present: GCS=15, CN II-XII Intact, Speech Normal, Motor Func Grossly Intact, Normal Sensory Function, Normal Cerebellar Funct Skin: Present: Warm, Dry, Normal Color. No: Rashes Psychiatric: Present: Alert, Oriented x 3, Normal Insight, Normal Concentration Medical Decision Making ED Course and Treatment: 01/25/18 19:41 Impression Patient is a 52 year old female with no PMH, who presents to the ED s/p slip and fall at work this morning. On exam, able to weight bear bilateral LE, swelling of the lateral and medial malleolus, left knee erythema, and edema, ROM limited by pain, left hallux point tenderness but good resisted ROM; sensation intact bilateral, distal pulses full Plan Plain film of right ankle, left knee and hallux Assess and dispo Progress Note 01/25/18 19:51 XRs reviewed; no fractures appreciated SHA wrap and ortho f/u Counseled on R.I.C.E and home care; will need PT VSS on DC - RAD Interpretation Narrative RAD Interpretations (Text): 01/26/18 01:01 No fractures or dislocations appreciated Radiology Orders: 01/25/18 18:48 ANKLE RIGHT 3 VIEWS ROUTINE [RAD] Stat KNEE WITH PATELLA LEFT 3 VIEW [RAD] Stat 01/25/18 18:52 FOOT LEFT GREAT TOE ROUTINE [RAD] Stat [employer]: ED Physician Disposition/Present on Arrival - Present on Arrival Any Indicators Present on Arrival: Yes History of DVT/PE: No History of Uncontrolled Diabetes: No Urinary Catheter: No History of Decub. Ulcer: No History Surgical Site Infection Following: None - Disposition Have Diagnosis and Disposition been Completed?: Yes Diagnosis: Ankle sprain, Knee pain, acute, Left foot pain Disposition: HOME/ ROUTINE Disposition Time: 20:00 Patient Plan: Discharge Condition: GOOD Discharge Instructions (ExitCare): Ankle Sprain, Foot Sprain (DC), Knee Pain Additional Instructions: Armando, thank you for letting us take care of you today. Your provider was ROSEMARY Marcum. You were treated for ankle sprain, knee injury and big toe injury. The emergency medical care you received today was directed at your acute symptoms. If you were prescribed any medication, please fill it and take as directed. It may take several days for your symptoms to resolve. Return to the Emergency Department if your symptoms worsen, do not improve, or if you have any other problems. We recommend that you follow up with an processing specialist for physical therapy Please contact your doctor or call one of the physicians/clinics you have been referred to that are listed on the Patient Visit Information form that is included in your discharge packet. Bring any paperwork you were given at discharge with you along with any medications you are taking to your follow up visit. Our treatment cannot replace ongoing medical care by a primary care provider (PCP) outside of the emergency department. Thank you for allowing the [facility] team to be part of your care today. If you had an X-Ray or CT scan: A Radiologist will review the ED reading if any change in treatment is needed we will contact you. Prescriptions: Diclofenac Sodium [Voltaren] 100 gm TP Q4 10 Days #2 gel..gram. Referrals: Barrington Saunders DO [Primary Care Provider] - Follow up with primary Alessandro Damon DO [Staff Provider] - Follow up with primary Forms: [employer] (Dominican)
--- NOTE | 2018-01-25 20:24 | RAD ---
EXAM: XR Right Ankle Complete, 3 or More Views CLINICAL HISTORY: 52 years old, female; Pain; Ankle; Right; Additional info: Injury TECHNIQUE: Frontal, lateral and oblique views of the right ankle. COMPARISON: No relevant prior studies available. FINDINGS: Bones/joints: Unremarkable. No acute fracture. No dislocation. Soft tissues: Soft tissue swelling. IMPRESSION: No fracture, or dislocation.
--- NOTE | 2018-01-25 20:29 | RAD ---
EXAM: XR Left Toe(s), 2 or More Views CLINICAL HISTORY: 52 years old, female; Pain; Foot; Left; Additional info: Injury TECHNIQUE: Frontal, lateral and oblique views of toe(s) of the left foot. COMPARISON: DX - KNEE WITH PATELLA LEFT 3 VIEW 2018-01-25 19:17 FINDINGS: Bones/joints: Hypertrophic changes first metatarsal head with associated degenerative cystic change. No acute fracture. No dislocation. Soft tissues: Unremarkable. No radiopaque foreign body. IMPRESSION: No evidence of fracture or dislocation.
--- NOTE | 2018-01-25 20:30 | RAD ---
EXAM: XR Left Knee, 3 views CLINICAL HISTORY: 52 years old, female; Pain; Knee; Left; Additional info: Injury TECHNIQUE: Three views of the left knee. COMPARISON: No relevant prior studies available. FINDINGS: Bones/joints: Moderate osteoarthritis medial joint compartment. Mild to moderate osteoarthritis patellofemoral compartment. No acute fracture. No dislocation. Soft tissues: Unremarkable. IMPRESSION: No fracture, or dislocation.
== END 2018-01-25 20:40 | disposition home or self-care (01) ==
LOC: ED 17:26
DX: S93.401A Sprain of unspecified ligament of right ankle, initial encounter (principal); W01.0XXA Fall on same level from slipping, tripping and stumbling without subsequent striking against object, initial encounter; Y92.89 Other specified places as the place of occurrence of the external cause; Y99.8 Other external cause status; M25.562 Pain in left knee; M79.672 Pain in left foot

== ENCOUNTER 2018-11-08 14:23 | Outpatient (CLI) | payer BC | END 2018-11-08 14:24 | disposition home or self-care (01) | LOC: RAD 14:23 ==

== ENCOUNTER 2019-02-22 17:45 | Emergency (ER) | payer BC ==
[2019-02-22 18:38] VITALS: BMI 39.6
[2019-02-22 18:42] VITALS: BP 143/97; PULSE 74; RESP 18; TEMP 98; O2SAT 98
[2019-02-22] MEDS ORDERED: Oxycodone/Acetaminophen 5/325 mg Tab PO STA (19:28)
--- NOTE | 2019-02-22 21:34 | ED PDOC ---
Arrival/HPI - General Chief Complaint: Upper Extremity Problem/Injury Time Seen by Provider: 02/22/19 18:41 Historian: Patient - History of Present Illness Narrative History of Present Illness (Text): 02/22/19 21:35 53-year-old female presents today with left shoulder pain x2 days. Patient states she woke up 2 days ago with pain in the left side of the neck and into the shoulder. Patient states that the arm feels stiff and she is unable to move the arm due to severe pain in the left shoulder. She denies chest pain or shortness of breath. She denies headaches dizziness or weakness. Patient states she has been taking Naprosyn with minimal improvement in the pain. Patient denies any recent trauma or injury. Patient states she has been having right shoulder pain for which she is scheduled to have an MRI. Past Medical History - Provider Review Nursing Documentation Reviewed: Yes Primary Care Provider: Barrington Saunders - Travel History Have you recently traveled outside [place] w/in the past 3 mons?: No - Past History Past History: No Previous - Infectious Disease Hx of Infectious Diseases: None - Tetanus Immunization Tetanus Immunization: Unknown - Cardiac Hx Cardiac Disorders: Yes Hx Hypertension: Yes - Pulmonary Hx Respiratory Disorders: No - Neurological Hx Neurological Disorder: No - HEENT Hx HEENT Disorder: Yes (eyeglasses) - Renal Hx Renal Disorder: No - Endocrine/Metabolic Hx Endocrine Disorders: No - Hematological/Oncological Hx Blood Disorders: No - Integumentary Hx Dermatological Disorder: No - Musculoskeletal/Rheumatological Hx Musculoskeletal Disorders: No - Gastrointestinal Hx Gastrointestinal Disorders: Yes Hx Gastrointestinal Ulcer: Yes - Genitourinary/Gynecological Hx Genitourinary Disorders: Yes Other/Comment: UTERINE SURGERY - Psychiatric Hx Psychophysiologic Disorder: No Hx Substance Use: No - Surgical History Other/Comment: UTERINE - Anesthesia Hx Anesthesia: Yes Hx Anesthesia Reactions: No Hx Malignant Hyperthermia: No - Suicidal Assessment Feels Threatened In Home Enviroment: No Family/Social History - Physician Review Nursing Documentation Reviewed: Yes Family/Social History: Unknown Family HX Smoking Status: Never Smoked Hx Alcohol Use: No Hx Substance Use: No Hx Substance Use Treatment: No Allergies/Home Meds Allergies/Adverse Reactions: Allergies No Known Allergies Allergy (Verified 01/25/18 17:44) Home Medications: Home Meds Medication Instructions Recorded Confirmed Lisinopril/Hydrochlorothiazide 1 each PO DAILY 08/09/17 02/22/19 [Lisinopril-Hctz 10-12.5 mg Tab] Review of Systems - Review of Systems Constitutional: absent: Fatigue, Fevers Respiratory: absent: SOB, Cough Cardiovascular: absent: Chest Pain, Palpitations Gastrointestinal: absent: Abdominal Pain, Nausea, Vomiting Musculoskeletal: Arthralgias (left shoulder pain), Neck Pain (left sided neck/shoulder pain). absent: Back Pain Skin: absent: Rash, Pruritis Neurological: absent: Headache, Dizziness Psychiatric: absent: Anxiety, Depression Physical Exam Vital Signs Reviewed: Yes Vital Signs Temp Pulse Resp BP Pulse Ox 02/22/19 18:41 98 F 74 18 143/97 H 98 Temperature: Afebrile Blood Pressure: Hypertensive Pulse: Regular Respiratory Rate: Normal Appearance: Positive for: Well-Appearing, Non-Toxic, Comfortable Pain Distress: None Mental Status: Positive for: Alert and Oriented X 3 - Systems Exam Head: Present: Atraumatic Mouth: Present: Moist Mucous Membranes Neck: Present: Normal Range of Motion, Paraspinal Tenderness (+ left sided paraspinal tenderness. + left sided trapezius tenderness), Trachea Midline. No: MIDLINE TENDERNESS Respiratory/Chest: Present: Clear to Auscultation, Good Air Exchange. No: Respiratory Distress, Accessory Muscle Use, Tender to Palpation Cardiovascular: Present: Regular Rate and Rhythm, Normal S1, S2. No: Murmurs Abdomen: No: Tenderness, Distention Back: Present: Normal Inspection. No: CVA Tenderness, Midline Tenderness Upper Extremity: Present: NORMAL PULSES, Tenderness (left shoulder; + ttp over lateral aspect of shoulder; decreased abduction of shoulder; no edema, no erythema, no ecchymosis; sensation and distal pulses intact. cap refill <2. ), Neurovascularly Intact, Capillary Refill < 2s. No: Normal ROM, Swelling, Erythema, Deformity Neurological: Present: GCS=15, Speech Normal, Motor Func Grossly Intact, Normal Sensory Function Skin: Present: Warm, Dry, Normal Color Psychiatric: Present: Alert, Oriented x 3 Medical Decision Making ED Course and Treatment: 02/22/19 21:32 53-year-old female with left-sided shoulder pain with limited range of motion. Patient found to have point tenderness over the lateral aspect of the shoulder as well as left-sided trapezius and left-sided cervical paraspinal tenderness Patient given Toradol, Flexeril and Percocet for pain left shoulder X-rays: No fracture Patient reassessment: Patient is feeling better. States she still has pain but she is now able to range the shoulder and arm. Patient was advised to take Motrin every 6 hours as needed for pain as well as Flexeril every 8 hours as spasms. She was advised to use Percocet every 6 hours as needed for moderate to severe pain. She was advised to rest and apply ice. I advised the patient that she should try and move the shoulder frequently to avoid a frozen shoulder. Patient states she is scheduled to have an MRI and follow-up with Dr. Carrillo. I have advised her to call Dr. Grijalva to make a earlier appointment. Advised me to return if symptoms worsen persist or if new concerning symptoms develop Patient verbalizes understanding of discharge instructions and need for immediate followup. All aspects of this case were discussed the attending of record. Impression: Shoulder pain Motrin every 6 hours as needed for pain Flexeril one tablet every 8 hours as needed for muscle spasms: May cause drowsiness Percocet: one tablet every 6 hours as needed for moderate to severe pain: May cause drowsiness rest, ice. Followup with the orthopedist within the next 2 days Followup with primary care physician within the next 2 days Return if symptoms worsen persist or if new symptoms develop Reassessment Condition: Re-examined, Improving,but remains with symptoms - RAD Interpretation Radiology Orders: 02/22/19 19:28 SHOULDER LEFT [RAD] Stat - Medication Orders Current Medication Orders: Discontinued Medications Cyclobenzaprine HCl (Flexeril) 10 mg PO STAT STA Stop: 02/22/19 19:29 Last Admin: 02/22/19 19:38 Dose: 10 mg Ketorolac Tromethamine (Toradol) 60 mg IM STAT STA Stop: 02/22/19 19:29 Last Admin: 02/22/19 19:37 Dose: 60 mg [facility] Pain Assessment Document 02/22/19 19:37 EB (Rec: 02/22/19 19:38 [id number]) Pain Reassessment Is this a pain reassessment? No Sleep Is patient sleeping during reassessment? No Presence of Pain Presence of Pain Yes Pain Scale Used Protocol: PSCALES Pain Scale Used Numeric Location Left, Right or Bilateral Left Pain Location Body Site Arm Leg Description Intensity of Pain at present 7 Pain Behavior Moaning Facial Grimacing IM Administration Charges Document 02/22/19 19:37 EB (Rec: [facility]22/19 19:38 [id number] Charges for Administration # of IM Administrations 1 Oxycodone/Acetaminophen (Percocet 5/325 Mg Tab) 1 tab PO STAT STA Stop: 02/22/19 19:29 Last Admin: 02/22/19 19:38 Dose: 1 tab MAR Pain Assessment Document 02/22/19 19:38 (Rec: 02/22/19 19:38 [id number] Pain Reassessment Is this a pain reassessment? No Sleep Is patient sleeping during reassessment? No Presence of Pain Presence of Pain Yes Pain Scale Used Protocol: PSCALES Pain Scale Used Numeric Location Left, Right or Bilateral Left Pain Location Body Site Arm Leg Description Intensity of Pain at present 7 Disposition/Present on Arrival - Present on Arrival Any Indicators Present on Arrival: No History of DVT/PE: No History of Uncontrolled Diabetes: No Urinary Catheter: No History of Decub. Ulcer: No History Surgical Site Infection Following: None - Disposition Have Diagnosis and Disposition been Completed?: Yes Diagnosis: Shoulder pain Disposition: HOME/ ROUTINE Disposition Time: 21:31 Patient Plan: Discharge Condition: GOOD Discharge Instructions (ExitCare): Shoulder Pain (DC) Additional Instructions: Motrin every 6 hours as needed for pain Flexeril one tablet every 8 hours as needed for muscle spasms: May cause drowsiness Percocet: one tablet every 6 hours as needed for moderate to severe pain: May cause drowsiness rest, ice. Followup with the orthopedist within the next 2 days Followup with primary care physician within the next 2 days Return if symptoms worsen persist or if new symptoms develop Prescriptions: Cyclobenzaprine [Cyclobenzaprine HCl] 10 mg PO Q8 #10 tab Ibuprofen [Motrin] 600 mg PO Q6H PRN #20 tab PRN Reason: pain/fever reduction oxyCODONE/Acetaminophen [Percocet 5/325 mg Tab] 1 tab PO Q6H PRN #6 tab PRN Reason: moderate to severe pain Referrals: Barrington Saunders DO [Family Provider] - Follow up with primary Fidencio Carrillo MD [Staff Provider] - Follow up with primary Suraj Fields MD [Staff Provider] - Follow up with primary Alessandro Damon DO [Staff Provider] - Follow up with primary Tim Rothman MD [Staff Provider] - [facility] [Outside] - Follow up with primary [facility] [place] [Outside] - Follow up with primary Forms: [employer] (Serbian), WORK NOTE
== END 2019-02-22 21:39 | disposition home or self-care (01) ==
LOC: ED 17:45
DX: M25.512 Pain in left shoulder (principal); I10 Essential (primary) hypertension
CPT/HCPCS: 73030; 81025; 96372; 99283; J1885